=== PATIENT | male | born 1955 | race Caucasian/White ===

== ENCOUNTER → 2017-09-09 | Outpatient (CLI) | payer OTHER ==
[2017-09-09 17:45] LABS: MCH 31.2 pg (26.0-34.0); MPV 7.1 fl. (7.2-11.1); RBC 4.78 mil/uL (4.50-6.00); RDW-CV 13.3 % (10.5-14.5); WBC 10.2 thou/uL (4.0-11.0)
[2017-09-09 17:48] LABS: URINE BILIRUBIN NEGATIVE (Negative); URINE BLOOD NEGATIVE (Negative); URINE CLARITY CLEAR; URINE COLOR YELLOW; URINE GLUCOSE-RANDOM NEGATIVE (Negative); URINE KETONES NEGATIVE (Negative); URINE LEUKOCYTES NEGATIVE (Negative); URINE NITRITE NEGATIVE (Negative); URINE PROTEIN NEGATIVE (Negative); URINE SPECIFIC GRAVITY >= 1.030 (1.005-1.030); URINE UROBILINOGEN 0.2 E.U./dl (0.2-1.0)
[2017-09-09 17:53] LABS: CALCIUM 9.7 mg/dL (8.5-10.1); CREATININE 1.3 mg/dL (0.6-1.3); POTASSIUM 4.6 mmol/L (3.5-5.1)
[2017-09-09 17:57] LABS: ALBUMIN 3.5 g/dL (3.4-5.0); TOTAL BILIRUBIN 0.2 mg/dL (<0.1-1.0); TOTAL PROTEIN 7.3 g/dL (6.4-8.2)
== END ==
LOC: M.LAB 17:00 → M.CT 17:30
PROVIDERS: Internal Medicine
DX: K57.30 Diverticulosis of large intestine without perforation or abscess without bleeding (principal); K57.32 Diverticulitis of large intestine without perforation or abscess without bleeding; K76.0 Fatty (change of) liver, not elsewhere classified; R16.1 Splenomegaly, not elsewhere classified

== ENCOUNTER → 2017-10-26 | Outpatient (CLI) | payer OTHER ==
[2017-10-26 12:10] LABS: CREATININE 1.2 mg/dL (0.6-1.3)
--- NOTE | 2017-10-26 15:38 | 2DMMODE ---
[place] [address] 2 D/M-MODE ECHOCARDIOGRAM Name: SANTOS MILLS Room: [facility]#: [id number] Admission: 10/26/17 Attend Phys: Naman Gonzalez, Discharge: Date of : 53 Date of Service: 10/26/17 1537 Report #: [id number] THIS REPORT FOR: //name// APPROVED REPORT Study performed: 10/26/2017 14:37:23 EXAM: Comprehensive 2D, Doppler, and color-flow Echocardiogram Patient Location: Out-Patient Status: routine BSA: 2.46 HR: 45 bpm BP: 135/90 mmHg Other Information Study Quality: Good Indications Chest Pain 2D Dimensions LVEF(%): 61.46 (>50%) IVSd: 12.06 (7-11mm) LVOT Diam: 20.16 (18-24mm) LVDd: 49.92 mm PWd: 11.35 (7-11mm) Ascending Ao: 37.77 (22-36mm) LVDs: 33.39 (25-40mm) Aortic Root: 25.84 mm Sexton's LVEF: 61.46 % Volumes Left Atrial Volume (Systole) LA ESV Index: 21.30 mL/m2 Aortic Valve AoV Peak Nilesh.: 1.39 m/s AO Peak Gr.: 7.77 mmHg LVOT Max P.71 mmHg AO Mean Gr.: 4.02 mmHg LVOT Mean P.41 mmHg LVOT Max V: 1.19 m/s AO V2 VTI: 27.51 cm LVOT Mean V: 0.68 m/s YAYA (VTI): 3.24 cm2 LVOT V1 VTI: 27.94 cm Mitral Valve E/A Ratio: 1.10 MV Decel. Time: 198.91 [place] [address] 2 D/M-MODE ECHOCARDIOGRAM Name: SANTOS MILLS Room: [facility]#: [id number] Admission: 10/26/17 Attend Phys: Naman Gonzalez, Discharge: Date of : 53 Date of Service: 10/26/17 1537 Report #: [id number] MV E Max Nilesh.: 0.61 m/s MV PHT: 57.68 ms MVA (PHT): 3.81 cm2 TDI E/Lateral E': 5.08 E/Medial E': 6.78 Medial E' Nilesh.: 0.09 m/s Lateral E' Nilesh.: 0.12 m/s Pulmonary Valve PV Peak Nilesh.: 1.09 m/s PV Peak Gr.: 4.73 mmHg Tricuspid Valve TR Peak Gr.: 22.49 mmHg RVSP: 27.49 mmHg Left Ventricle The left ventricle is normal size. There is normal LV segmental wall motion. There is normal left ventricular wall thickness. Left ventricular systolic function is normal. The left ventricular ejection fraction is within the normal range. LVEF is 55-60%. The left ventricular diastolic function is normal. Right Ventricle The right ventricle is normal size. The right ventricular systolic function is normal. Atria The left atrium size is normal. The right atrium size is normal. Aortic Valve Mild aortic valve sclerosis. No aortic regurgitation is present. There is no aortic valvular stenosis. Mitral Valve The mitral valve is normal in structure. Mild mitral regurgitation. No evidence of mitral valve stenosis. Tricuspid Valve The tricuspid valve is normal in structure. Mild tricuspid regurgitation. The RVSP is __27.5 mmHg. Pulmonic Valve The pulmonary valve is normal in structure. There is [place] [address] 2 D/M-MODE ECHOCARDIOGRAM Name: SANTOS MILLS Room: [facility]#: [id number] Admission: 10/26/17 Attend Phys: Naman Gonzalez, Discharge: Date of : 53 Date of Service: 10/26/17 1537 Report #: [id number] Great Vessels The aortic root is normal in size. IVC is normal in size and collapses with >50% inspiration Pericardium There is no pericardial effusion. <Conclusion> The left ventricle is normal size. There is normal left ventricular wall thickness. Left ventricular systolic function is normal. The left ventricular ejection fraction is within the normal range. LVEF is 55-60%. The left ventricular diastolic function is normal. The right ventricle is normal size. The left atrium size is normal. Mild aortic valve sclerosis. No aortic regurgitation is present. There is no aortic valvular stenosis. The mitral valve is normal in structure. Mild mitral regurgitation. The tricuspid valve is normal in structure. Mild tricuspid regurgitation. The RVSP is __27.5 mmHg. IVC is normal in size and collapses with >50% inspiration There is no pericardial effusion. There is normal LV segmental wall motion. <ELECTRONICALLY SIGNED> By: Luigi Norris MD, FACC 10/26/17 1537 [id number] Luigi Norris MD, FACC /INF
== END ==
LOC: M.CT 10-07 10:00 → M.LAB 11:45 → M.CT 13:00
PROVIDERS: Internal Medicine
DX: I08.3 Combined rheumatic disorders of mitral, aortic and tricuspid valves (principal); E11.9 Type 2 diabetes mellitus without complications; K21.9 Gastro-esophageal reflux disease without esophagitis; G47.19 Other hypersomnia

== ENCOUNTER → 2018-10-31 | Outpatient (CLI) | payer OTHER | LOC: M.ULTRA 15:00 | DX: I82.432 Acute embolism and thrombosis of left popliteal vein (principal); Z88.0 Allergy status to penicillin ==

== ENCOUNTER → 2019-05-15 | Outpatient (CLI) | payer OTHER | LOC: M.MRI 16:04 | DX: M17.12 Unilateral primary osteoarthritis, left knee (principal); E11.9 Type 2 diabetes mellitus without complications; I10 Essential (primary) hypertension; E78.5 Hyperlipidemia, unspecified; E66.9 Obesity, unspecified; K21.9 Gastro-esophageal reflux disease without esophagitis; Z72.89 Other problems related to lifestyle; Z79.899 Other long term (current) drug therapy ==

== ENCOUNTER → 2019-06-27 | Outpatient (CLI) | payer OTHER | LOC: M.ULTRA 06-26 16:00 | DX: I82.432 Acute embolism and thrombosis of left popliteal vein (principal); I83.92 Asymptomatic varicose veins of left lower extremity ==

== ENCOUNTER → 2020-12-12 | Outpatient (CLI) | payer MEDICARE | LOC: M.CT 08:33 → M.RAD 08:33 → M.CT 09:30 | PROVIDERS: ATTEND Internal Medicine | DX: M48.02 Spinal stenosis, cervical region (principal); N28.1 Cyst of kidney, acquired; K76.0 Fatty (change of) liver, not elsewhere classified; M25.78 Osteophyte, vertebrae ==